=== PATIENT | male | born 1965 | race Caucasian/White ===

== ENCOUNTER 2020-12-27 16:45 | Outpatient (CLI) | payer SELFPAY ==
[2020-12-27 17:32] LABS: Uric Acid 6.9 mg/dL (3.5-8.5)
== END 2020-12-27 16:46 | disposition home or self-care (01) ==
LOC: ANHLAB 16:47
PROVIDERS: PCP Family Medicine; Visit Provider Family Medicine
DX: M25.579 Pain in unspecified ankle and joints of unspecified foot (principal)
CPT/HCPCS: 36415; 84550

== ENCOUNTER → 2022-04-22 12:04 | Outpatient (CLI) | payer SELFPAY ==
--- NOTE | ~2022-04-22 | XR_ITS ---
EXAM: XR ribs RT 2V w CXR 2V DATE: 04/22/2022 12:38 HISTORY: R07.81 - Pleurodynia . COMPARISON: None available. FINDINGS: The lungs are clear. Unremarkable cardiomediastinal silhouette. Normal mineralization. No f racture or dislocation. No lytic or blastic lesion. Moderate degenerative change in the right shoulde r. Thoracal lumbar scoliosis. Exaggerated thoracic kyphosis. No erosion or periosteal change. Soft ti ssues within normal limits. IMPRESSION: No acute osseous finding in the right ribs. No acute cardiopulmonary process. Reviewed, dictated and finalized at location K. IMPRESSION: No acute osseous finding in the right ribs. No acute cardiopulmonar y process.
== END ==
PROVIDERS: PCP Family Medicine; Visit Provider Physician Assistant
DX: R07.81 Pleurodynia (principal)
CPT/HCPCS: 71046; 71100

== ENCOUNTER → 2023-01-17 10:22 | Outpatient (CLI) | payer SELFPAY ==
--- NOTE | ~2023-01-17 | CT_ITS ---
EXAMINATION: CT diagnostic chest wo con DATE: 01/17/2023 10:35 INDICATION: Chronic right-sided rib pain TECHNIQUE: Computed tomography (CT) of the chest was performed without intravenous contrast. The dose -length product was 230.43 mGy-cm. Automated exposure control and iterative reconstruction technique were employed. COMPARISON: None FINDINGS: No thoracic lymphadenopathy. Heart size normal. No significant pleural or pericardial effus ion. No significant vascular abnormality. There is a 1.9 cm low-density mass of the left adrenal glan d, consistent with adenoma. There is mild emphysema. No endobronchial lesions. No focal airspace cons olidation. No pulmonary nodules. There is a healed right ninth rib fracture. Moderate lower thoracic spondylosis with accentuated kyphosis. No pneumothorax. No endobronchial lesions. IMPRESSION: 1. No findings to account for patient's symptoms. Reviewed, dictated and finalized at location A. RINARY RECEPTIONIST
== END ==
PROVIDERS: PCP Family Medicine; Visit Provider Physician Assistant
DX: R07.81 Pleurodynia (principal)
CPT/HCPCS: 71250

== ENCOUNTER 2024-04-09 09:12 | Emergency (ER) | payer SELFPAY ==
--- NOTE | ~2024-04-09 | XR_ITS ---
EXAMINATION: XR ankle RT min 3V DATE: 04/09/2024 09:58 INDICATION: Right ankle pain and swelling. TECHNIQUE: 4 views of right ankle were obtained. COMPARISON: None. FINDINGS: Bone alignment is normal. No fracture. There is mild osteoarthritis of talonavicular joint and ankle joint. There is ankle soft tissue swelling. IMPRESSION: 1. Mild polyarticular osteoarthritis. Reviewed, dictated and finalized at location A.
[2024-04-09 09:31] VITALS: BP 98/59; PULSE 129; RESP 18; TEMP 36.3; O2SAT 96
--- NOTE | 2024-04-09 09:46 | ED.EXTPRO ---
HPI - Extremity Problem General Chief complaint: Extremity Problem,Nontraumatic Stated complaint: lower extremity injury Time Seen by Provider: 04/09/24 09:46 Source: patient Mode of arrival: ambulatory Limitations: no limitations History of Present Illness HPI Narrative: 58-year-old male presented for complaint of right ankle pain and swelling over the past 3 days. He endorses an injury that occurred 6 days ago, stating he may have rolled the ankle while getting out of bed due to leg cramps. However he was able to ambulate without any difficulty for about 3 days following this incident. Endorses some redness and warmth to the inner ankle along with decreased range of motion. Using crutches from home. Reports a history of gout to great toe. Related Data Allergies Allergy/AdvReac Type Severity Reaction Status Date / Time colchicine AdvReac Nausea Verified 04/09/24 09:30 Review of Systems Review of Systems: CONSTITUTIONAL: Denies body aches, fever, chills CARDIOVASCULAR: Denies chest pain, palpitations, or edema. RESPIRATORY: Denies cough or dyspnea. GASTROINTESTINAL: Denies abdominal pain, nausea, vomiting, or diarrhea. SKIN: Denies rash, itching, or wounds. MUSCULOSKELETAL: Reports right ankle pain NEUROLOGIC: Denies headache, numbness, tingling, or weakness. All systems reviewed & are unremarkable except as noted in HPI and below PMFSH Past Medical History Medical History (Updated 04/09/24 @ 10:12 by Brittny Moser APRN) Chronic GERD Essential hypertension Gout Social History Social History Smoking status: Never smoker Second hand tobacco smoke exposure: No Alcohol intake: current Drinks per week: 8 Substance use: never Substance use type: does not use Living arrangements: alone Occupation/Education: occupation Gender identity (if verbalized by the patient): Male Comments At time of signature, I have reviewed and agree with nursing past medical, surgical, social and family history unless otherwise noted. Please see nursing chart for further information. There is no relevant family history pertinent to the presenting complaint Exam Narrative: GENERAL: Appears in pain, in no acute distress. CHEST: Speaks in full sentences. No respiratory distress. HEART: Regular rate and rhythm. Normal and equal peripheral pulses. EXTREMITIES: Right medial ankle with area of erythema approximately 5 cm diameter, warm, tender. moderate swelling of right ankle and midfoot; decreased range of motion to ankle c/w gout. No lateral tenderness. foot has normal strength and sensation, No ecchymosis, No open wounds, skin tenting, or obvious deformity; alignment normal, pulse palpable and equal bilaterally, skin warm, dry, pink. Capillary refill less than 3 seconds. Bunions bilaterally. SKIN: Warm, dry, large area of ecchymosis to the left upper arm NEURO: Alert and oriented x3. PSYCH: Normal mood and affect Course Course Emergency Course: Patient is aware of diagnosis, understands and agrees to treatment plan. Anticipatory guidance given. Patient agrees to follow-up as directed and is aware of reasons to seek care at the emergency department. Portions of this record may have been created with voice recognition software Level of Care: Express Care Visit Vital Signs Vital signs: Vital Signs Temperature 97.3 F L 04/09/24 09:31 Pulse Rate 129 H 04/09/24 09:31 Respiratory Rate 18 04/09/24 09:31 Blood Pressure 98/59 L 04/09/24 09:31 Pulse Oximetry 96 04/09/24 09:31 Temperature 97.3 F L 04/09/24 09:31 Pulse Rate 129 H 04/09/24 09:31 Respiratory Rate 18 04/09/24 09:31 Blood Pressure 98/59 L 04/09/24 09:31 Pulse Oximetry 96 04/09/24 09:31 Reviewed MDM - Extremity (Nontraumatic) MDM Narrative Medical decision making narrative: Results of x-ray reviewed with patient. States he will have his PCP co
== END 2024-04-09 10:23 | disposition home or self-care (01) ==
PROVIDERS: Emergency Provider Nurse Practitioner Family; PCP Family Medicine
DX: M10.9 Gout, unspecified (principal); K21.9 Gastro-esophageal reflux disease without esophagitis; I10 Essential (primary) hypertension
CPT/HCPCS: 73610; 99213; G0463

== ENCOUNTER 2025-01-04 11:22 | Emergency (ER) | payer SELFPAY ==
--- NOTE | 2025-01-04 11:41 | ED_ITS ---
HPI - Chest Pain General Stated Complaint: Chest Pain Time Seen by Provider: 01/04/25 11:35 Source: patient, RN notes reviewed and old records reviewed Mode of arrival: ambulatory Limitations: no limitations History of Present Illness HPI narrative: patient presents with complaints of left-sided chest pain that began 1 hour ago, has since resolved. He denies any associated shortness of breath or nausea. He does report some associated confusion that he says has also resolved. He denies any smoking history, does give history of hypertension. Reports that he takes up to 40 mg of lisinopril daily in divided doses, has had 10 mg today at 6:00 a.m.. 324 mg of baby aspirin given prior to departure via EMS. transfer process was immediately began when patient arrived with this chief complaint Related Data Allergies Allergy/AdvReac Type Severity Reaction Status Date / Time colchicine AdvReac Nausea Verified 01/04/25 11:41 Review of Systems Review of Systems: All systems reviewed & are unremarkable except as noted in HPI and below Constitutional: Constitutional: Reports no additional constitutional complaints ENT: Reports system reviewed and no additional complaints, except as documented Cardiovascular: Cardiovascular: Reports chest pain Respiratory: Respiratory: Reports no additional respiratory complaints Gastrointestinal: Gastrointestinal: Reports no additional gastrointestinal complaints Neurologic: Reports confusion PMFSH Past Medical History Medical History Gout Costochondritis Rib pain on right side Chronic GERD Essential hypertension Social History Social History Smoking status: Never smoker Second hand tobacco smoke exposure: No Alcohol intake: current Drinks per week: 8 Substance use: never Substance use type: does not use Living arrangements: alone Occupation/Education: occupation Gender identity (if verbalized by the patient): Male Comments At the time of my signature, I reviewed and agree with the nursing past medical, surgical, social, and family history. There is no relevant family history pertinent to the patient complaint. Exam Const: General: cooperative, alert, awake and other (cool and clammy) Orientation/consciousness: oriented to person, oriented to place and oriented to time HENMT: Head: normal to inspection Resp: Effort & Inspection: normal respiratory effort and able to speak in complete sentences Auscultation: clear to auscultation bilaterally, no crackles, no rales, no rhonchi and no wheezes Cardio: Palpation: normal PMI Rate: regular rate Rhythm: regular rhythm Heart sounds: S1 normal heart sound present and S2 normal heart sound present Neuro: General: oriented to person, oriented to place and oriented to time Cranial nerves: Yes CN's II-XII intact bilaterally Psych: Appearance: grossly normal Thought process: Normal thought process present Insight: Good insight present (Psych) Judgement: Good judgement present (Psych) Course Course Level of Care: Express Care Visit Vital Signs Vital signs: Reviewed Transfer Transfered to: [facility]: [facility] Transfer rationale: chest pain Accepting physician: MERON Lowry Transfer comments: aspirin given prior to EMS arrival MDM - Chest Pain MDM Narrative Medical decision making narrative: patient presents with left-sided chest pain that radiates to the jaw. Transfer process was immediately begun. patient to [facility] via EMS. Aspirin given prior to EMS arrival. Differential Diagnosis Differential diagnosis: Likely stable angina, unstable angina pectoris, atypical chest pain and st elevation myocardial infarction Medical Records Data Attestation: I reviewed the patient's medical records. ECG Data EKG #1: Attestation: I personally reviewed and interpreted this ECG as follows: ECG completion date: 01/04/25 ECG completion time: 11:40 Prior ECG tracings: available for review EKG Interpretation: normal rate, sinus rhythm, PVCs and no ST changes Discharge Plan Discharge Clinical Impression: Chest pain Qualifiers: Chest pain type: unspecified Qualified Code(s): R07.9 - Chest pain, unspecified Patient Disposition: Acute Care Hospital Condition: Serious Instructions: Antibiotic Form Patient Language: Bengali Prescriptions: No Action omeprazole 20 mg tablet,delayed release (DR/EC) 20 mg PO DAILY Qty: 30 0RF lisinopril 10 mg tablet 10 mg PO QID Qty: 360 1RF Follow-up/Referrals: Andre Bradford MD [Primary Care Provider] - Time of Disposition: 11:49
[2025-01-04 11:42] VITALS: BP 168/99; PULSE 88; RESP 20; TEMP 36.2; O2SAT 100
[2025-01-04] MEDS: ASPIRIN 81 MG CHEWABLE TABLET 324 MG PO (11:45)
--- OUTSIDE RECORDS SUMMARY | 2025-01-04 12:00 | XMS_ITS | CONTINUITY OF CARE DOCUMENT ---
Author Name nora melendez Address Unknown Organization [facility] Address [address] [address] [place] [address] Phone [phone] Care Team Providers Care Conveyor Maintenance Mechanic Name Role Phone nora melendez Unavailable Unavailable
--- OUTSIDE RECORDS SUMMARY | 2025-01-04 12:00 | XMS_ITS | Clinical Summary ---
Author Organization [facility] Address [address] [place] [address]. [place], [place] [id number] [place] [id number] Care Team Providers Care Physician Executive Name Role Phone Andre Bradford MD Primary Care Provider [phone] Allergies No known active allergies Immunizations Name Administration Dates Next Due Tdap (Adacel) 10/08/2019 Social History Tobacco Use Types Packs/Day Years Used Date Smoking Tobacco: Never Smokeless Tobacco: Never Alcohol Use Standard Drinks/Week Comments Yes 0 (1 standard drink = 0.6 oz pur e alcohol) Sex and Gender Information Value Date Recorded Sex Assigned at Not on file Legal Sex Male 4:46 PM CDT Gender Identity Not on file Sexual Orientation Not on file Last Filed Vital Signs Vital Sign Reading Time Taken Comments Blood Pressure 130/78 10/08/2019 10:08 PM SUPERVISING NURSE Pulse 111 10/08/2019 10:08 PM SUPERVISING NURSE Temperature 37 ??C (98.6 ??F) 10/08/2019 10:08 PM SUPERVISING NURSE Respiratory Rate 18 10/08/2019 10:08 PM SUPERVISING NURSE Oxygen Saturation 98% 10/08/2019 10:08 PM SUPERVISING NURSE Inhaled Oxygen Concentration - - Weight 72.6 kg (160 lb) 10/08/2019 10:08 PM SUPERVISING NURSE Height 167.6 cm (5' 6 ) 10/08/2019 10:08 PM SUPERVISING NURSE Body Mass Index 25.82 10/08/2019 10:08 PM SUPERVISING NURSE Plan of Treatment Health Maintenance Due Date Last Done Comments Colorectal Cancer Screening Colonoscopy (10 Years) 1965 Annual Physical 1968 Hepatitis C 1983 Zoster Vaccines (1 of 2) 2015 COVID-19 Vaccine (2023-2 5 season) 2024 Influenza Adult (#1) 2024 DTaP, Tdap and Td Vaccines ( 2 - Td or Tdap) 10/08/2029 10/08/2019 Meningococcal B Vaccine Aged Out No l onger eligible based on patient's age to complete this topic Meningococcal Vaccine Aged Out No sanchez aditi eligible based on patient's age to complete this topic Pneumococcal Vaccine: Pediat rics (0 to 5 Years) and At-Risk Patients (6 to 64 Years) Aged Out No longer eligi ble based on patient's age to complete this topic RSV Immunizations Under 20 Months Aged Out No longer eligible based on patient's age to complete this topic Insurance [employer] Care Teams Physician Executive Relationship Specialty Start Date End Date Andre Bradford MD [address] [place], [place] [id number] PCP - General FAMILY PRACTICE 10/08/19
--- NOTE | 2025-01-04 12:01 | ECG_ITS ---
Test Date: 2025-01-04 13:24:46 Measurements Intervals [place] Rate: 78 P: 46 NH: 143 QRS: 37 QRSD: 86 T: 32 QT: 370 QTc: 424 Interpretive Statements SINUS RHYTHM BASELINE ARTIFACT- I, II, III, AVR, AVL, AVF, V1 NORMAL ECG Compared to ECG 01/04/2025 11:40:49 Ventricular premature complex(es) no longer present Electronically Signed On 01-04-2025 13:26:36 ELECTRICAL & INSTRUMENTATION SUPERVISOR by Juan Francisco Castañeda D.O.
== END 2025-01-04 11:52 | disposition short-term general hospital (02) ==
PROVIDERS: Emergency Provider Nurse Practitioner Family; PCP Family Medicine
DX: R07.9 Chest pain, unspecified (principal); I10 Essential (primary) hypertension; K21.9 Gastro-esophageal reflux disease without esophagitis
CPT/HCPCS: 93005; 99215; A9270; G0463

== ENCOUNTER 2025-01-04 12:19 | Emergency (ER) | payer SELFPAY ==
--- NOTE | ~2025-01-04 | CT_ITS ---
EXAMINATION: CT brain wo con DATE: 01/04/2025 13:41 INDICATION: Altered mental status TECHNIQUE: Computed tomography (CT) of the head was performed without intravenous contrast. Sagittal and coronal reconstructions were performed. The mA was adjusted according to patient size. Iterative reconstruction technique was employed. The dose-length product was 605.33 mGy-cm. COMPARISON: None FINDINGS: No acute intracranial hemorrhage, acute infarction or abnormal extra axial fluid collection. There is minimal scattered white matter hypoattenuation consistent with chronic small vessel ischemic disease . Ventricles are normal and symmetric. No mass/mass effect. Mucous retention cyst in the left maxill michael sinus. The orbits and mastoid air cells are normal. IMPRESSION: 1. No acute intracranial process. 2. Minimal periventricular predominant calcific white matter hypoattenuation consistent with chronic small vessel ischemic disease. Reviewed, dictated and finalized at location A. LY CLERK IMPRESSION: 1. No acute intracranial process. 2. Minimal periventricular predominant calcific white matter hypoattenuation co nsistent with chronic small vessel ischemic disease.
--- NOTE | 2025-01-04 12:20 | ECG_ITS ---
Test Date: 2025-01-04 11:40:49 Measurements Intervals [place] Rate: 88 P: 34 NC: 146 QRS: 30 QRSD: 86 T: 30 QT: 350 QTc: 424 Interpretive Statements SINUS RHYTHM WITH OCCASIONAL VENTRICULAR PREMATURE COMPLEXES BORDERLINE T WAVE ABNORMALITY- INFERIOR LEADS BASELINE ARTIFACT- I, III, AVR, AVL, AVF BORDERLINE ECG No previous ECG available for comparison Electronically Signed On 01-04-2025 12:40:06 CUPOLA OPERATOR by Juan Francisco Castañeda D.O.
--- OUTSIDE RECORDS SUMMARY | 2025-01-04 12:20 | XMS_ITS | CONTINUITY OF CARE DOCUMENT ---
Author Name nora melendez Address Unknown Organization [facility] Address [address] [place] [address] Phone [phone] Care Team Providers Care Engineering Technical Writer Name Role Phone nora melendez Unavailable Unavailable
--- NOTE | 2025-01-04 13:25 | ED_ITS ---
HPI - Chest Pain General Chief Complaint: Chest Pain <Domonique Sujata Maguire, PACKAGE LINE OPERATOR - Last Filed: 01/04/25 18:45> Stated Complaint: Chest pain <Domonique Sujata Maguire PACKAGE LINE OPERATOR - Last Filed: 01/04/25 18:45> Time Seen by Provider: 01/04/25 13:20 <Domonique Ernst Andrez PACKAGE LINE OPERATOR - Last Filed: 01/04/25 18:45> Focused HPI: Patient is a 59-year-old male who presents to the ER with left-sided chest pain that radiates to his shoulder. He reports he had an ?episode around 10:30 this morning that lasted a few seconds but it has since resolved. Patient also endorses intermittent episodes of ?stammering and brain fog. He denies any other medical history but his chart indicates he is on lisinopril and omeprazole. Patient denies back pain, one-sided weakness/numbness/tingling, recent fevers. GENERAL: Well-appearing, well-nourished, and in no acute distress. HEAD: Normocephalic, atraumatic. CHEST: Clear to auscultation. ?No respiratory distress. HEART: Tachycardia, regular rhythm. NEURO: ?Alert and oriented x3. Patient screened in triage and initial orders placed.? ?Additional care and disposition to be based upon?diagnostic testing and treatment. <Domonique MandelLuigi Maguire, PACKAGE LINE OPERATOR - Last Filed: 01/04/25 18:45> History of Present Illness HPI narrative: Agree with the above with the following additions/corrections: Patient states the episode lasted a few seconds as above and resolved without any lingering issues or recurrence of symptoms since presenting either to the urgent care or to the emergency department subsequently. Has a history of asthma for which he uses albuterol inhaler p.r.n.. No underlying heart issues that he knows of. He received 324 mg of aspirin already. He states something similar had happened before but he did not have it worked up. He saw hvac specialist years ago for some issue that he cannot recall but does not follow with them regularly. Denies any shortness of breath, diaphoresis, nausea, vomiting, cough, fevers, or chills. Has a PCP. Cardiac risk factors: Hypertension +. Hyperlipidemia no. Diabetes mellitus no. Smoke no. Obese no. No prior myocardial infarction, TIA, CVA. No family history of myocardial infarction in a first-degree relative before the age of 65. <Haley Leyva MD - Last Filed: 01/05/25 17:35> Related Data Allergies/Adverse Reactions: Allergies Allergy/AdvReac Type Severity Reaction Status Date / Time colchicine AdvReac Nausea Verified 01/04/25 11:41 <Domonique Maguire APRN - Last Filed: 01/04/25 18:45> [facility] Past Medical History Medical History: Medical History (Updated 01/05/25 @ 17:29 by Haley Leyva MD) Asthma Gout Costochondritis Rib pain on right side Chronic GERD Essential hypertension <Domonique Maguire APRN - Last Filed: 01/04/25 18:45> Family History Family History: Family History Mother Cerebrovascular accident, Onset Age: 79 Smoker <Domonique Maguire APRN - Last Filed: 01/04/25 18:45> Social History Social History: Social History Smoking status: Never smoker Second hand tobacco smoke exposure: No Alcohol intake: current Drinks per week: 8 Substance use: never Substance use type: does not use Living arrangements: alone Occupation/Education: occupation Gender identity (if verbalized by the patient): Male <Domonique Maguire APRN - Last Filed: 01/04/25 18:45> Exam 2 Narrative: GENERAL: Well-appearing, well-nourished, and in no acute distress. HEAD: Normocephalic, atraumatic. EYES: Non injected, non icteric ENT: Nares clear, no rhinorrhea or epistaxis. NECK: Supple. CHEST: Speaking in full sentences. No respiratory distress. Lungs clear to auscultation bilaterally without appreciable wheezes or crackles. HEART: Regular rate and rhythm. ABDOMEN: Soft, nondistended. EXTREMITIES: Normal range of motion. No lower extremity edema. SKIN: Warm, dry, no rash. NEURO: No focal deficits. Alert and oriented x3. PSYCH: Normal mood and affect. <Haley Leyva MD - Last Filed: 01/05/25 17:35> Course Vital Signs Vital signs: Vital Signs Pulse Rate 76 01/04/25 19:34 Respiratory Rate 16 01/04/25 19:34 Blood Pressure 180/108 H 01/04/25 19:34 Pulse Oximetry 100 01/04/25 19:34 Oxygen Delivery Room Air 01/04/25 19:34 Pulse Rate 85 01/04/25 21:31 Respiratory Rate 16 01/04/25 21:31 Blood Pressure 114/95 H 01/04/25 21:31 Pulse Oximetry 96 01/04/25 21:31 Oxygen Delivery Room Air 01/04/25 19:39 <Domonique Maguire, PACKAGE LINE OPERATOR - Last Filed: 01/04/25 18:45> Vital Signs Pulse Rate 76 01/04/25 19:34 Respiratory Rate 16 01/04/25 19:34 Blood Pressure 180/108 H 01/04/25 19:34 Pulse Oximetry 100 01/04/25 19:34 Oxygen Delivery Room Air 01/04/25 19:34 Pulse Rate 85 01/04/25 21:31 Respiratory Rate 16 01/04/25 21:31 Blood Pressure 114/95 H 01/04/25 21:31 Pulse Oximetry 96 01/04/25 21:31 Oxygen Delivery Room Air 01/04/25 19:39 <Haley Leyva MD - Last Filed: 01/05/25 17:35> MDM - Chest Pain MDM Narrative Medical decision making narrative: Patient presents with an episode occurring at 10:30 a.m. this morning lasted a few seconds. Involved chest pain that radiated to his shoulder and occurred with a sense of brief confusion in which she was standing and had what he describes as brain fog. In the emergency department he is afebrile with vital signs notable hypertension HEART SCORE History 2 highly suspicious 1 moderately suspicious 0 slightly suspicious History score [address] depression/elevation not due to LBBB, LVH, or digoxin [address] depression but LBBB, LVH, nonspecific repolarization changes 0 normal ECG score 0 Age 2 >/= 65 1 45-64 0 <45 Age score 1 Risk factors (HTN, hypercholesterolemia, DM, obesity with BMI >30, current smoker or cessation </=3mo), positive fam hx with parent or sibling with CVD before age 65, atherosclerotic disease (prior VA, PCI/CABG, CVA/TIA, or peripheral arterial disease) 2 >/= 3 risk factors or history of atherosclerotic dz 1 - 1-2 risk factors 0 no known risk factors Risk factor score 1 Initial Troponin 2 >3 times normal limit 1 1-3 times normal limit 0 less than or equal to normal limit Troponin score 0 Total HEART Score 2. Repeat troponin normal. It did appear upon review that no chest x-ray had initially been ordered from triage despite chest pain protocol. No CXR obtained at urgent care per review of EMR. This is ordered however I am informed by [facility] that patient refused. I did ask the patient myself but he still refuses, unclear why. Viral swab negative. Discharged home in stable condition advised follow-up with primary care physician/hvac specialist outpatient workup. Had discussed the HEART pathway and the recommendation for this followup with patient and he verified understanding. Prescribed acetaminophen ibuprofen and given the name of referral contact information for Cardiology. <Haley Leyva MD - Last Filed: 01/05/25 17:35> Differential Diagnosis Differential diagnosis: Likely stable angina, unstable angina pectoris, atypical chest pain, st elevation myocardial infarction, chest pain and other (TIA/ CVA; MSK) <Haley Leyva MD - Last Filed: 01/05/25 17:35> Lab Data Attestation: I reviewed the patient's lab results. <Haley Leyva MD - Last Filed: 01/05/25 17:35> Result diagrams: 01/04/25 13:30 01/04/25 13:30 <Domonique Maguire APRN - Last Filed: 01/04/25 18:45> Labs: Lab Results 01/04/25 01/04/25 01/04/25 Range/Units 13:30 19:19 19:28 WBC 12.5 H (4.5-10.0) K/mm3 RBC 4.79 (4.6-6.20) M/mm3 Hgb 15.2 (14.0-18.0) g/dL Hct 44.1 (42.0-52.0) % MCV 92.1 (80-100) fl MCH 31.7 (26-34) pg MCHC 34.5 (32-36) g/dl RDW 12.3 (11.5-14.5) % Plt Count 286 (150-375) k/mm3 MPV 9.9 (7.4-10.4) fl Immature Gran % (Auto) 0.2 (0-0.5) % Neut % (Auto) 85.0 H (45.5-73.1) % Lymph % (Auto) 7.1 L (18.3-44.2) % Grand % (Auto) 6.4 (2.6-8.5) % Eos % (Auto) 0.6 (0-4.4) % Baso % (Auto) 0.7 (0.2-1.2) % Lymph # (Auto) 0.89 L (0.9-3.2) K/mm3 Grand # (Auto) 0.8 H (0.1-0.6) K/mm3 Eos # (Auto) 0.1 (0-0.3) K/mm3 Baso # (Auto) 0.1 (0.0-0.1) K/mm3 Abs Immat Gran (auto) 0.03 (0.00-0.031) K/mm3 Absolute Neuts (auto) 10.7 H (1.3-6.7) K/mm3 Absolute Nucleated RBC 0.000 (0.0-0.012) K/mm3 Nucleated RBC % 0.0 (0.0-0.2) % PT 12.7 (11.1-14.7) Seconds INR 0.9 APTT 30.0 (22.3-36.8) Seconds Sodium 140 (137-145) mmol/L Potassium 4.1 (3.4-5.0) mmol/L Chloride 102 (98-107) mmol/L Carbon Dioxide 29 (22-30) mmol/L Anion Gap 9 (4-12) mmol/L BUN 15 (9-20) mg/dL Creatinine 0.94 (0.7-1.3) mg/dL Estim Creat Clear Calc 70 ml/min Estimated GFR > 60 (59 - ) Glucose 92 (65-110) mg/dL Calcium 9.5 (8.4-10.2) mg/dL Total Bilirubin 0.8 (0.2-1.3) mg/dL AST 30 (17-59) U/L ALT 27 (6-50) U/L Alkaline Phosphatase 95 (38-126) U/L Troponin I < 0.012 < 0.012 (0.000-0.034) ng/mL Total Protein 8.0 (6.3-8.2) g/dL Albumin 4.5 (3.5-5.1) g/dL Lipase 75 (23-300) U/L Urine Color Yellow (Yellow) Urine Appearance Clear (Clear) Urine pH 7.5 (5.0-9.0) Ur Specific [place] 1.013 (1.001-1.035) Urine Protein Trace (Negative) mg/dL Urine Glucose (UA) Negative (Negative) mg/dL Urine Ketones Negative (Negative) mg/dL Ur Blood (Man) Negative (Negative) Urine Nitrate Negative (Negative) Urine Bilirubin Negative (Negative) Urine Urobilinogen 0.2 (<2.0) mg/dL Leukocyte Esterase Rfl Negative (Negative) MEGHNA/UL Urine RBC 0-2 (0-2) /hpf Urine WBC 0-5 (0-3) /hpf Ur Squamous Epith Cells None seen (Few) /hpf Urine Bacteria None seen /hpf Urine Casts 0-2 Urine Opiates Screen Negative (Negative) Urine Methadone Screen Negative (Negative) Ur Barbiturates Screen Negative (Negative) Ur Phencyclidine Scrn Negative (Negative) Ur Amphetamine Screen Negative (Negative) U Benzodiazepines Scrn Negative (Negative) Urine Cocaine Screen Negative (Negative) U Cannabinoids Screen Negative (Negative) Influenza A (RT-PCR) Negative (Negative) Influenza B (RT-PCR) Negative (Negative) RSV (RT-PCR) Negative (Negative) SARS-CoV-2 RNA (RT-PCR) Negative (Negative) <Domonique Maguire, PACKAGE LINE OPERATOR - Last Filed: 01/04/25 18:45> Lab Results 01/04/25 01/04/25 01/04/25 Range/Units 13:30 19:19 19:28 WBC 12.5 H (4.5-10.0) K/mm3 RBC 4.79 (4.6-6.20) M/mm3 Hgb 15.2 (14.0-18.0) g/dL Hct 44.1 (42.0-52.0) % MCV 92.1 (80-100) fl MCH 31.7 (26-34) pg MCHC 34.5 (32-36) g/dl RDW 12.3 (11.5-14.5) % Plt Count 286 (150-375) k/mm3 MPV 9.9 (7.4-10.4) fl Immature Gran % (Auto) 0.2 (0-0.5) % Neut % (Auto) 85.0 H (45.5-73.1) % Lymph % (Auto) 7.1 L (18.3-44.2) % Grand % (Auto) 6.4 (2.6-8.5) % Eos % (Auto) 0.6 (0-4.4) % Baso % (Auto) 0.7 (0.2-1.2) % Lymph # (Auto) 0.89 L (0.9-3.2) K/mm3 Grand # (Auto) 0.8 H (0.1-0.6) K/mm3 Eos # (Auto) 0.1 (0-0.3) K/mm3 Baso # (Auto) 0.1 (0.0-0.1) K/mm3 Abs Immat Gran (auto) 0.03 (0.00-0.031) K/mm3 Absolute Neuts (auto) 10.7 H (1.3-6.7) K/mm3 Absolute Nucleated RBC 0.000 (0.0-0.012) K/mm3 Nucleated RBC % 0.0 (0.0-0.2) % PT 12.7 (11.1-14.7) Seconds INR 0.9 APTT 30.0 (22.3-36.8) Seconds Sodium 140 (137-145) mmol/L Potassium 4.1 (3.4-5.0) mmol/L Chloride 102 (98-107) mmol/L Carbon Dioxide 29 (22-30) mmol/L Anion Gap 9 (4-12) mmol/L BUN 15 (9-20) mg/dL Creatinine 0.94 (0.7-1.3) mg/dL Estim Creat Clear Calc 70 ml/min Estimated GFR > 60 (59 - ) Glucose 92 (65-110) mg/dL Calcium 9.5 (8.4-10.2) mg/dL Total Bilirubin 0.8 (0.2-1.3) mg/dL AST 30 (17-59) U/L ALT 27 (6-50) U/L Alkaline Phosphatase 95 (38-126) U/L Troponin I < 0.012 < 0.012 (0.000-0.034) ng/mL Total Protein 8.0 (6.3-8.2) g/dL Albumin 4.5 (3.5-5.1) g/dL Lipase 75 (23-300) U/L Urine Color Yellow (Yellow) Urine Appearance Clear (Clear) Urine pH 7.5 (5.0-9.0) Ur Specific [place]re[place] 1.013 (1.001-1.035) Urine Protein Trace (Negative) mg/dL Urine Glucose (UA) Negative (Negative) mg/dL Urine Ketones Negative (Negative) mg/dL Ur Blood (Man) Negative (Negative) Urine Nitrate Negative (Negative) Urine Bilirubin Negative (Negative) Urine Urobilinogen 0.2 (<2.0) mg/dL Leukocyte Esterase Rfl Negative (Negative) MEGHNA/UL Urine RBC 0-2 (0-2) /hpf Urine WBC 0-5 (0-3) /hpf Ur Squamous Epith Cells None seen (Few) /hpf Urine Bacteria None seen /hpf Urine Casts 0-2 Urine Opiates Screen Negative (Negative) Urine Methadone Screen Negative (Negative) Ur Barbiturates Screen Negative (Negative) Ur Phencyclidine Scrn Negative (Negative) Ur Amphetamine Screen Negative (Negative) U Benzodiazepines Scrn Negative (Negative) Urine Cocaine Screen Negative (Negative) U Cannabinoids Screen Negative (Negative) Influenza A (RT-PCR) Negative (Negative) Influenza B (RT-PCR) Negative (Negative) RSV (RT-PCR) Negative (Negative) SARS-CoV-2 RNA (RT-PCR) Negative (Negative) <Haley Leyva MD - Last Filed: 01/05/25 17:35> ECG Data EKG #1: Attestation: I personally reviewed and interpreted this ECG as follows: < Haley Leyva MD - Last Filed: 01/05/25 17:35> ECG completion date: 01/04/25 <Haley Leyva MD - Last Filed: 01/05/25 17:35> ECG completion time: 13:24 <Haley Leyva MD - Last Filed: 01/05/25 17:35> Prior ECG tracings: available for review (Patient had an EKG performed at urgent care earlier today. PVCs but otherwise no concerning features. Otherwise no prior for comparison) <Haley Leyva MD - Last Filed: 01/05/25 17:35> Interpretation: Normal sinus rhythm at a rate of 78 beats per minute. MA interval 143. QRS 86. QT/QTC 370/4 4. Good R-wave progression across the precordial leads. No T-wave inversions. Normal ECG. <Haley Leyva MD - Last Filed: 01/05/25 17:35> EKG #2: Attestation: I personally reviewed and interpreted this ECG as follows: < Haley Leyva MD - Last Filed: 01/05/25 17:35> ECG completion date: 01/04/25 <Haley Leyva MD - Last Filed: 01/05/25 17:35> ECG completion time: 19:18 <Haley Leyva MD - Last Filed: 01/05/25 17:35> Interpretation: Normal sinus rhythm at a rate of 76 beats per minute. MA interval 144. QRS 82. QT/QTC 364/395. Good R-wave progression across the precordial leads. No T-wave inversions. Normal axis. Normal ECG. <Haley Leyva MD - Last Filed: 01/05/25 17:35> Discharge Plan Discharge Clinical Impression: Chest pain, Acute pain of left shoulder, Leukocytosis <Domonique Maguire APRN - Last Filed: 01/04/25 18:45> Patient Disposition: Home, Self-Care <Domonique Maguire APRN - Last Filed: 01/04/25 18:45> Condition: Stable <Domonique Maguire APRN - Last Filed: 01/04/25 18:45> Instructions: Antibiotic Form, Chest Pain (DC), Leukocytosis (ED), Shoulder Pain (ED) <Domonique Maguire APRN - Last Filed: 01/04/25 18:45> Additional Instructions: Your workup with this generally unremarkable without clear cause of your symptoms (labs, EKG, etc.; although you declined the chest xray which potentially would have given more information or ruled out other conditions/causes). You are otherwise generally low risk so the recommendation is for the rest of your workup to be performed in the outpatient setting as we discussed. Follow-up with your primary care physician to help arrange this or, if needed, the name of a hvac specialist is listed below. Acetaminophen/Tylenol (maximum 4000 mg per day) is safe to take with NSAIDs (ibuprofen/Motrin) for pain relief. Continue taking your other prescribed medications. Return to the emergency department with any new or worsening or recurring symptoms. <Domonique Maguire APRN - Last Filed: 01/04/25 18:45> Patient Language: [place] Verdean <Domonique Maguire APRN - Last Filed: 01/04/25 18:45> Prescriptions: New ibuprofen 600 mg tablet 600 mg PO TID PRN (Reason: pain) Qty: 30 0RF acetaminophen 500 mg capsule 1,000 mg PO Q6H PRN (Reason: pain) Qty: 30 0RF No Action omeprazole 20 mg tablet,delayed release (DR/EC) 20 mg PO DAILY Qty: 30 0RF lisinopril 10 mg tablet 10 mg PO QID Qty: 360 1RF <Domonique Maguire APRN - Last Filed: 01/04/25 18:45> Follow-up/Referrals: Andre Bradford MD [Primary Care Provider] - Andreas Gomez MD [Physician] - (cardiology) <Domonique Maguire APRN - Last Filed: 01/04/25 18:45> Stand Alone Forms: Work/School Release IP <Domonique Maguire APRN - Last Filed: 01/04/25 18:45> Time of Disposition: 20:02 <Domonique Maguire APRN - Last Filed: 01/04/25 18:45> 20:02 <Haley Leyva MD - Last Filed: 01/05/25 17:35>
[2025-01-04 13:59] LABS: Basophils Absolute Auto 0.1 K/mm3 (0.0-0.1); Basophils Percent Auto 0.7 % (0.2-1.2); Eosinophils Absolute Auto 0.1 K/mm3 (0-0.3); Eosinophils Percent Auto 0.6 % (0-4.4); Hematocrit 44.1 % (42.0-52.0); Hemoglobin 15.2 g/dL (14.0-18.0); Immature Granulocyte Absolute 0.03 K/mm3 (0.00-0.031); Immature Granulocyte Percent A 0.2 % (0-0.5); Lymphocytes Absolute Auto 0.89 K/mm3 (0.9-3.2); Lymphocytes Percent Auto 7.1 % (18.3-44.2); Mean Corpuscular HGB Conc 34.5 g/dl (32-36); Mean Corpuscular Hemoglobin 31.7 pg (26-34); Mean Corpuscular Volume 92.1 fl (80-100); Mean Platelet Volume 9.9 fl (7.4-10.4); Monocytes Absolute Auto 0.8 K/mm3 (0.1-0.6); Monocytes Percent Auto 6.4 % (2.6-8.5); Neutrophils Absolute Auto 10.7 K/mm3 (1.3-6.7); Platelet Count Result 286 k/mm3 (150-375); Red Blood Count 4.79 M/mm3 (4.6-6.20); Red Cell Distribution Width 12.3 % (11.5-14.5); White Blood Count 12.5 K/mm3 (4.5-10.0)
[2025-01-04 14:07] LABS: Alanine Aminotransferase 27 U/L (6-50); Albumin Level 4.5 g/dL (3.5-5.1); Alkaline Phosphatase 95 U/L (38-126); Anion Gap 9 mmol/L (4-12); Aspartate Amino Transferase 30 U/L (17-59); Bilirubin,Total 0.8 mg/dL (0.2-1.3); Blood Urea Nitrogen 15 mg/dL (9-20); Calcium 9.5 mg/dL (8.4-10.2); Carbon Dioxide 29 mmol/L (22-30); Chloride 102 mmol/L (98-107); Estimated CRCL calculation 70 ml/min; Estimated Glomerular Filt Rate > 60; Glucose 92 mg/dL (65-110); Lipase 75 U/L (23-300); Potassium 4.1 mmol/L (3.4-5.0); Sodium 140 mmol/L (137-145)
[2025-01-04 14:19] LABS: INR 0.9; Prothrombin Time 12.7 Seconds (11.1-14.7); Troponin I < 0.012 ng/mL (0.000-0.034)
--- NOTE | 2025-01-04 18:59 | ECG_ITS ---
Test Date: 2025-01-04 19:18:03 Measurements Intervals [place] Rate: 76 P: 39 [place]: 144 QRS: 35 QRSD: 82 T: 40 QT: 364 QTc: 409 Interpretive Statements SINUS RHYTHM VOLTAGE CRITERIA FOR LVH BASELINE ARTIFACT- I, II, III, AVR, AVL, AVF, V1-V6 BORDERLINE ECG Compared to ECG 01/04/2025 13:24:46 No significant changes Electronically Signed On 01-05-2025 07:06:00 HEADWAITER/HEADWAITRESS by Juan Francisco Castañeda D.O.
--- OUTSIDE RECORDS SUMMARY | 2025-01-04 19:09 | XMS_ITS | CONTINUITY OF CARE DOCUMENT ---
Author Name nora melendez Address Unknown Organization [facility] Address [address] [place] [address] Phone [phone] Care Team Providers Care Gauge And Instrument Inspector Name Role Phone nora melendez Unavailable Unavailable
--- OUTSIDE RECORDS SUMMARY | 2025-01-04 19:09 | XMS_ITS | Clinical Summary ---
Author Organization [facility] Address [address] [place] [id number] Care Team Providers Care Belting Cutter Name Role Phone Andre Bradford MD Primary Care Provider [phone] Allergies No known active allergies Immunizations Name [...] Comments Blood Pressure 130/78 10/08/2019 10:08 PM NON CDL DRIVER Pulse 111 10/08/2019 10:08 PM NON CDL DRIVER Temperature 37 ??C (98.6 ??F) 10/08/2019 10:08 PM NON CDL DRIVER Respiratory Rate 18 10/08/2019 10:08 PM NON CDL DRIVER Oxygen Saturation 98% 10/08/2019 10:08 PM NON CDL DRIVER Inhaled Oxygen Concentration - - Weight 72.6 kg (160 lb) 10/08/2019 10:08 PM NON CDL DRIVER Height 167.6 cm (5' 6 ) 10/08/2019 10:08 PM NON CDL DRIVER Body Mass Index 25.82 10/08/2019 10:08 PM NON CDL DRIVER Plan of Treatment Health Maintenance Due Date [...] Insurance [employer] Care Teams Belting Cutter Relationship Specialty Start Date End Date Andre Bradford MD [address] [place] [address] PCP - General FAMILY PRACTICE 10/08/19
[2025-01-04 19:34] VITALS: BP 180/108; PULSE 76; RESP 16; O2SAT 100
[2025-01-04 19:42] LABS: Add Urine Microscopic? YES; Appearance Urine Clear (Clear); Bacteria Urine None Seen /hpf; Bilirubin Urine Negative (Negative); Blood Urine Negative (Negative); Color Urine Yellow (Yellow); Glucose Urine UA Negative (Negative); Ketones Urine Negative (Negative); Leukocyte Esterase Ur Negative LEU/UL (Negative); Nitrate Urine Negative (Negative); Non Pathogenic Casts 0-2; Protein Urine Trace mg/dL (Negative); RBC Urine 0-2 /hpf (0-2); Specific Grav Ur 1.013 (1.001-1.035); Squamous Epithelial Cell Urine None Seen /hpf (Few); Urobilinogen Urine 0.2 mg/dL (<2.0); WBC Urine 0-5 /hpf (0-3); pH Urine 7.5 (5.0-9.0)
--- NOTE | 2025-01-04 19:42 | PC.NURSE ---
Pt. received 324mg of aspirin at this morning. Pt. states his symptoms had already resolved.
[2025-01-04 19:48] LABS: Troponin I < 0.012 ng/mL (0.000-0.034)
[2025-01-04 19:55] LABS: Amphetamine Screen Urine Negative (Negative); Barbiturate Screen Urine Negative (Negative); Benzodiazepines Screen Urine Negative (Negative); Cannabinoid Screen Urine Negative (Negative); Cocaine Screen Urine Negative (Negative); Methadone Screen Urine Negative (Negative); Opiate Screen Urine Negative (Negative); Phencyclidine Screen Urine Negative (Negative)
[2025-01-04 20:16] LABS: Influenza A QL RT-PCR Negative (Negative); Influenza B QL RT-PCR Negative (Negative); RSV RNA, RT-PCR Negative (Negative); SARS-CoV-2 RNA PCR Negative (Negative)
[2025-01-04 21:31] VITALS: BP 114/95; PULSE 85; RESP 16; O2SAT 96
== END 2025-01-04 21:34 | disposition home or self-care (01) ==
PROVIDERS: Preventive Medicine Aerospace Medicine; Registered Nurse; Emergency Provider Student in an Organized Health Care Education/Training Program; PCP Family Medicine
DX: R07.9 Chest pain, unspecified (principal); M25.512 Pain in left shoulder; D72.829 Elevated white blood cell count, unspecified; J45.909 Unspecified asthma, uncomplicated; K21.9 Gastro-esophageal reflux disease without esophagitis; I10 Essential (primary) hypertension
CPT/HCPCS: 36415; 70450; 80053; 80307; 81001; 83690; 84484; 85025; 85610; 85730; 87637; 93005; 99284

== ENCOUNTER 2025-10-20 21:11 | Emergency (ER) | payer OTHER, SELFPAY ==
--- NOTE | 2025-10-20 21:20 | PC.NURSE ---
Addendum entered by Bertha Walker RN 10/20/25 21:54: EMS reports pt has had approx 1 hour of epistaxis from R nare. Reports that they placed txa soaked gauze into R nare which mostly stopped the bleeding. Pt arrives to triage desk with minimal bleeding. Original Note: Pt arrives via EMS with TXA soaked gauze in R nare. Bleeding mostly controlled at that time. While getting pt registered, pt pulled out gauze stating he thought it was done bleeding. Pt then was bleeding excessively in triage. Called charge nurse for room assignment for pt.
[2025-10-20 22:00] VITALS: BP 142/91; PULSE 107; RESP 18; O2SAT 96
[2025-10-20] MEDS: TRANEXAMIC ACID 1,000 MG/10 ML AMPUL 10 MG TOPICAL (23:15)
[2025-10-20] MEDS: OXYMETAZOLINE HCL 0.05% NAS 15 ML BTL (*BKC) 1 SPRAY NASAL (23:16)
--- NOTE | 2025-10-20 23:16 | PC.NURSE ---
Report to ENEDINA GARCIA
--- NOTE | 2025-10-20 23:22 | PC.NURSE ---
Report received from Leonora GARCIA
--- NOTE | 2025-10-20 23:55 | ED_ITS ---
HPI - Epistaxis General Chief complaint: Epistaxis Stated complaint: nose bleed Time Seen by Provider: 10/20/25 22:55 History of Present Illness HPI Narrative: 60-year-old male presenting with acute epistaxis. Patient reports a history of nosebleeds. He attempted conservative measures with no success. Patient is not taking blood thinners. Denies headache, vision changes, nausea/vomiting, or any history of trauma. Related Data Allergies Allergy/AdvReac Type Severity Reaction Status Date / Time colchicine AdvReac Nausea Verified 09/21/25 11:19 Review of Systems Review of Systems: All systems reviewed & are unremarkable except as noted in HPI and below PMFSH Past Medical History Medical History Essential hypertension Asthma Gout Costochondritis Rib pain on right side Chronic GERD Family History Family History Mother Cerebrovascular accident, Onset Age: 79 Smoker Social History Social History Smoking status: Never smoker Second hand tobacco smoke exposure: No Alcohol intake: current Drinks per week: 8 Substance use: never Substance use type: does not use Living arrangements: alone Occupation/Education: occupation Gender identity (if verbalized by the patient): Male Exam Narrative: GENERAL: No acute distress. HEAD: Normocephalic, atraumatic. EYES: PERRLA and EOMI. ENT: Right nostril epistaxis. Mucous membrane edema. Oropharynx without tonsillar hypertrophy exudate or other lesions. Bilateral TMs pearly villavicencio non- bulging NECK: Supple. No adenopathy or masses. No carotid bruits or JVD CHEST: Clear to auscultation. No respiratory distress. No wheezes rales or rhonchi HEART: Regular rate and rhythm. No murmur heard. Normal peripheral pulses. ABDOMEN: Soft, nontender, nondistended, normal active bowel sounds. EXTREMITIES: Normal range of motion. No edema. SKIN: Warm, dry, no rash. NEURO: No focal deficits. Alert and oriented x3. PSYCH: Normal mood and affect Course Vital Signs Vital signs: Vital Signs Pulse Rate 107 H 10/20/25 22:00 Respiratory Rate 18 10/20/25 22:00 Blood Pressure 142/91 H 10/20/25 22:00 Pulse Oximetry 96 10/20/25 22:00 Temperature 98.7 F 10/21/25 01:55 Pulse Rate 74 10/21/25 01:55 Respiratory Rate 18 10/21/25 01:55 Blood Pressure 152/88 H 10/21/25 01:55 Pulse Oximetry 99 10/21/25 01:55 Procedures Epistaxis Control right: Epistaxis Control Date: 10/21/25 Epistaxis Control Time: 00:52 Nose Prepped With: oxymetazoline Direct Inspection: unable to visualize Cautery Used: none Device Inserted: nasal tampon Device Size: 5 Patient Tolerated Procedure: well Epistaxis Control Narrative: Rhino rocket soaked in oxymetazoline and placed in right nostril. Bulb inflated. Tolerated procedure well. MDM - Epistaxis MDM Narrative Medical decision making narrative: 60-year-old male presenting with acute epistaxis. Patient reports a history of nosebleeds. He attempted conservative measures with no success. Patient is not taking blood thinners. Denies headache, vision changes, nausea/vomiting, or any history of trauma. Patient?s epistaxis was treated successfully in the ED with a rhino rocket. Origin is likely anterior, with bleeding well controlled at this time. The importance of taking antibiotics was reviewed with patient, as well as recommended follow-up and reasons to return to the ED, including continued bleeding, severe pain, unable to keep down food or drink, or fever greater than 100.4F. Instructed to follow-up with ENT in 3 days. Given reasons to return. Medical Records Attestation: I reviewed the patient's medical records. Discharge Plan Discharge Clinical Impression: Epistaxis Patient Disposition: Home Condition: Stable Instructions: Antibiotic Form, Nosebleed (ED) Additional Instructions: Return to the ER if you have severe uncontrolled bleeding that lasts longer than 20 minutes, you lose consciousness, or you are not able to breathe. After a severe episode of nose bleeding you may have a bowel movement that appears to have blood in it. This is due to the fact that you have swallowed a lot of blood. In order to prevent nosebleeds it is recommended that you use [place] nasal spray to increase moisture in your nose, you apply Vaseline as a barrier cream with a Q-tip, and that you use a humidifier/vaporizer in your bedroom at night. If you have oxymetazoline (Afrin) available, this can be used twice a day for no longer than 3 days. It can help control your bleeding. You may use claritin or zyrtec as nasal decongestants if your have a runny/stuffy nose. Do not remove her touch the nasal packing. Avoid nose blowing, heavy lifting, or straining of the pack is in place. Take antibiotic as prescribed, with food to avoid GI upset. Take anti-inflammatories (Aleve, Ibuprofen, Naproxen, etc) or Tylenol as needed for pain. Follow-up with ENT in 3 days. Patient Language: [place]ic Prescriptions: New amoxicillin-pot clavulanate [Augmentin] 500-125 mg tablet 1 tablet PO TID Qty: 15 0RF No Action amlodipine 5 mg tablet 5 mg PO DAILY Qty: 30 2RF celecoxib [Celebrex] 50 mg capsule 50 mg PO BID Qty: 30 1RF ibuprofen 600 mg tablet 600 mg PO TID PRN (Reason: pain) Qty: 30 0RF acetaminophen 500 mg capsule 1,000 mg PO Q6H PRN (Reason: pain) Qty: 30 0RF omeprazole 20 mg tablet,delayed release (DR/EC) 20 mg PO DAILY Qty: 30 0RF lisinopril 10 mg tablet 10 mg PO QID Qty: 360 1RF Follow-up/Referrals: Andre Bradford MD [Primary Care Provider, Family Practice] Jhonny Guerrier MD [Physician, Ear, Nose, Throat]
[2025-10-21 01:55] VITALS: BP 152/88; PULSE 74; RESP 18; TEMP 37.1; O2SAT 99
== END 2025-10-21 02:02 | disposition home or self-care (01) ==
PROVIDERS: PCP Family Medicine
DX: R04.0 Epistaxis (principal); I10 Essential (primary) hypertension; J45.909 Unspecified asthma, uncomplicated; M10.9 Gout, unspecified; K21.9 Gastro-esophageal reflux disease without esophagitis; Z79.899 Other long term (current) drug therapy
CPT/HCPCS: 30901; 99283; A9270; J3290